=== PATIENT | female | born 1990 | race African-American/Black ===

== ENCOUNTER 2017-10-09 16:49 | Emergency (ER) | payer SELFPAY ==
[~2017-10-09] VITALS: Ht 165.1 cm; Wt 59.0 kg
[2017-10-09 17:32] VITALS: BP 113/63
== END 2017-10-09 19:35 | disposition left against medical advice (07) ==
LOC: ER 16:49
DX: O20.9 Hemorrhage in early pregnancy, unspecified (principal); Z53.21 Procedure and treatment not carried out due to patient leaving prior to being seen by health care provider; Z3A.00 Weeks of gestation of pregnancy not specified